=== PATIENT | male | born 1940 | race Caucasian/White ===

== ENCOUNTER 2018-12-25 13:51 | Emergency (ER) | payer OTHER, MEDICARE ==
[~2018-12-25] VITALS: Ht 175.3 cm; Wt 90.3 kg
[~2018-12-25 13:51] MED LIST: COZAAR100 MG PO; GLUCOPHAGE500 MG PO; LEVO-T50 MCG PO
[2018-12-25] MEDS ORDERED: FLOVENT HFA12 G1 INH (14:12)
[2018-12-25] MEDS ORDERED: IPRAT-ALBUT 0.5-3 ML INH (15:41)
[2018-12-25] MEDS ORDERED: PREDNISONE20 MG PO (15:41)
== END 2018-12-25 15:59 | disposition home or self-care (01) ==
LOC: ED 13:51
DX: J44.1 Chronic obstructive pulmonary disease with (acute) exacerbation (principal); I10 Essential (primary) hypertension; E03.9 Hypothyroidism, unspecified; E11.9 Type 2 diabetes mellitus without complications; Z87.891 Personal history of nicotine dependence; Z79.899 Other long term (current) drug therapy; Z79.84 Long term (current) use of oral hypoglycemic drugs
CPT/HCPCS: 94640; 99283; J7512

== ENCOUNTER 2023-05-21 14:20 | Inpatient (IN) | payer MEDICARE ==
[~2023-05-21] VITALS: Ht 175.3 cm; Wt 84.5 kg
--- NOTE | ~2023-05-21 | DS ---
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 Increasing lower abdominal pain and distention. Evaluation by Dr. Mp Guerrero showed him to have an elevated white count of greater than 15,000, a normal urinalysis and Chem profile and creatinine elevated at 1.22. A CT scan was performed showing significant abdominal distention and right lower abdominal tenderness concordant to findings of perforated ileal diverticulitis. Localized micro perforation was considered, likely had no generalized free air or pneumoperitoneum. He was considered to have an ileal diverticular abscess 1.3 cm in size with small bowel loops dilated with air-fluid levels suggesting ileus or partial small-bowel obstruction. He was admitted at this time for further evaluation and care. PERTINENT PHYSICAL EXAMINATION: GENERAL: Showed a pleasant white man, who did not look systemically toxic. VITAL SIGNS: His temperature was measured at 101. He is 84.5 kg and 5 feet 9 inches tall with a BMI of 27.5. HEENT: Mucous membranes are slightly dry. CHEST: Clear. HEART: Regular without murmur. ABDOMEN: Distended, but mildly focally tender in the right lower quadrant. LABORATORY DATA: White count was 15.8, hematocrit 40.8, platelets 181,000. Chem profile abnormal for creatinine 1.22. HOSPITAL COURSE: The patient was admitted with micro perforation of terminal ileum, diverticula (ileal diverticulitis). Broad-spectrum antibiotics were maintained. Followup abdominal and chest x-ray were performed, which showed no worsening of findings and he had clinical improvement. His white count decreased from 15.8 to 12.0 with IV antibiotics, IV fluids, and n.p.o. status. His creatinine did increase from 1.3 and ongoing hydration was maintained. He had progressive improvement. I discussed his clinical situation with his daughter, Leonel, who is a nurse in [place], [place], at [phone]. She concurred with the approach. He was noted to have decreasing white count of 7.5. He was advanced from a liquid to a full diet with ambulation in the rizo. Antibiotics were continued intravenously. A CT scan was repeated with GI and IV contrast, and although considered worsened in some ways on CT scan. His clinical situation was much improved actually. The areas of inflammatory change were well noted, including wall thickening PATIENT NAME: EKTA TEMPLE DISCHARGE SUMMARY DATE OF : 42 REPORT #: [id number] PHYSICIAN: MAI KNOX MD PCP: STEPHON HALLMAN PAC REPORT IS CONFIDENTIAL AND NOT TO BE RELEASED WITHOUT AUTHORIZATION [facility] [address], [place] [address] Draft and fat stranding involving the terminal ileum and a separate loop of more proximal jejunum, that abutted that loop of ileum. The small hypodense fluid collections adjacent to the wall of the ileum suspicious for intramural or developing abscesses up to 3 cm in size. There is no evidence for bowel obstruction. Severe ileitis and possibly ischemic ileitis was noted. Diffuse thickening of the gastric fundus beyond the GE junction was also noted and trace small right and left pleural effusions also seen. Despite those findings of note, he had progressive improvement. He was advanced to a low fiber diet and oral antibiotics, which he tolerated well. Conservative management is maintained. At time of discharge mindful that he may require resectional therapy or other intervention. DISCHARGE MEDICATIONS: His discharge medications will include Cipro 500 mg p.o. b.i.d. #14, Flagyl 250 mg p.o. t.i.d. #21, ibuprofen 600 mg p.o. q.6 hours as needed for pain #30. He will resume his usual medications of losartan 100 mg p.o. daily, Anoro Ellipta inhaler daily, metformin 500 mg daily, montelukast 10 mg p.o. daily, albuterol nebulizer or inhaler two puffs q.4 hours as needed for wheezing. FOLLOWUP PLANS: He will return to see me in 3 to 4 weeks, sooner if symptoms should worsen. DISCHARGE DIAGNOSES: 1. Acute ileitis related to ileal diverticular microperforations with small localized abscess conservatively managed. 2. Advanced reactive airways disease/chronic obstructive pulmonary disease. 3. Aoy-xhmemte-bhycdmmxa diabetes mellitus. 4. Hypertension. MD NICK Mcdonald/SHARIFL /[id number] cc: Mp Guerrero MD PATIENT NAME: EKTA TEMPLE DISCHARGE SUMMARY DATE OF : 42 REPORT #: [id number] PHYSICIAN: MAI KNOX MD PCP: STEPHON HALLMAN [facility] REPORT IS CONFIDENTIAL AND NOT TO BE RELEASED WITHOUT AUTHORIZATION [address], [place] [address] Draft Copies: MP GUERRERO MD ~ PATIENT NAME: EKTA TEMPLE DISCHARGE SUMMARY DATE OF : 42 REPORT #: [id number] PHYSICIAN: MAI KNOX MD PCP: STEPHON HALLMAN PAC REPORT IS CONFIDENTIAL AND NOT TO BE RELEASED WITHOUT AUTHORIZATION
--- NOTE | ~2023-05-21 | HP ---
[facility] [address], [place] [address] Draft ADMISSION DATE: 05/21/2023 REASON FOR ADMISSION: Acute terminal ileal inflammatory change, possible perforated ileal diverticula. 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 His two grown children live in [place] and [place]. For four days, he has had increasing pain in the lower abdomen and increasing abdominal distention. He presented to the emergency room where he was evaluated by Dr. Guerrero. His white count was noted to be elevated to greater than 15,000 (15.8 with a normal urinalysis and normal chem profile other than creatinine elevated at 1.22. A CT scan was performed as he did have significant abdominal distention and right lower quadrant tenderness. This confirmed findings most suggestive of perforated ileal diverticulitis. A localized microperforation was considered likely. He had no free or significant pneumoperitoneum generally. A possible diverticular abscess 1.3 cm in size is identified and multiple dilated small-bowel loops with air-fluid level suggesting ileus or partial small bowel obstruction. Notably, the patient has had no surgery in the past. PAST MEDICAL HISTORY: Noted for COPD. He has available to him home oxygen as I understand. He does drink beers three a week but does not drink alcohol daily. He has had right knee surgery and back surgery and is known to have hypothyroidism, and hypertension, as well as diabetes mellitus, and use of a CPAP device. CURRENT MEDICATIONS: Include ipratropium, albuterol sulfate inhaler and occasional use of fluticasone and daily use of losartan, Synthroid, and metformin. PRIMARY PROVIDER: Stephon Hallman PA-C. REVIEW OF SYSTEMS: He denies any shortness of breath at this time or chest pain. His abdominal pain is much improved since admission. He has had no blood per rectum or hematemesis. PHYSICAL EXAMINATION: VITAL SIGNS: A pleasant white man who does not look to be systemically toxic though his temperature which is measured at 101. He is 5 feet 9 inches tall, 84.5 kg, and a BMI of PATIENT NAME: EKTA TEMPLE HISTORY AND PHYSICAL DATE OF : 42 REPORT #: [id number] PHYSICIAN: MAI KNOX MD PCP: STEPHON HALLMAN PAC REPORT IS CONFIDENTIAL AND NOT TO BE RELEASED WITHOUT AUTHORIZATION [facility] [address], [place] [address] Draft 27.5. HEENT: Mucous membranes are slightly dry. Trachea is midline. CHEST: Shows no respiratory distress and generally clear. HEART: Regular. ABDOMEN: Somewhat distended. It is not focally tender except mildly in the right lower quadrant. LABORATORY STUDIES: Show white count of 15.8, hematocrit 40.8, platelets 181,000. Chem profile abnormal only for a creatinine of 1.22. I have reviewed the CT scans and reports associated with it. ASSESSMENT: The patient has an inflammatory focus in the right lower quadrant involving small bowel loops and thought likely to represent perforated ileal diverticulitis. I have recommended admission to the hospital, IV antibiotics, parenteral pain medication, and will additionally give parenteral Tylenol for fever control and pain control. I discussed with him in detail the pathophysiology of this problem for which operative intervention is sometimes necessary. He has not had nausea or vomiting, and although he does have some distended bowel loops, we have avoided for the moment, placement of nasogastric tube unless he should vomit or have worsening of his distention. Given his underlying possible significant COPD from the past, nasogastric tube may be more problematic than beneficial at this point. Since his process is in the very distal small bowel, there is some room for flexibility in this situation. If he should develop nausea, vomiting however, nasogastric tube would be promptly placed. MD NICK Mcdonald/ANNA /[id number] cc: Stephon Hallman PA-C Mp Guerrero MD PATIENT NAME: EKTA TEMPLE HISTORY AND PHYSICAL DATE OF : 42 REPORT #: [id number] PHYSICIAN: MAI KNOX MD PCP: STEPHON HALLMAN PAC REPORT IS CONFIDENTIAL AND NOT TO BE RELEASED WITHOUT AUTHORIZATION [address] [place], [place] [address] Draft Copies: MP GUERRERO MD ~ PATIENT NAME: EKTA TEMPLE HISTORY AND PHYSICAL DATE OF : 42 REPORT #: [id number] PHYSICIAN: MAI KNOX MD PCP: STEPHON HALLMAN PAC REPORT IS CONFIDENTIAL AND NOT TO BE RELEASED WITHOUT AUTHORIZATION
--- OUTSIDE RECORDS SUMMARY | ~2023-05-21 | XMS | Continuity of Care Document ---
Demographics + + + | Address | [address] | | | [place] [address] | + + + | Preferred Language | Unknown | + + + | Marital Status | | + + + | Restorationism Affiliation | Unknown | + + + | Race | White | + + + | Ethnic Group | Unknown | + + + Author + + + | Author | [facility] | + + + | Organization | [facility] | + + + | Address | [address] | | | [place] [address] | + + + | Phone | | + + + Care Team Providers + + + + | Care Plug And Mold Finisher Name | Role | Phone | + + + + Unavailable | Unavailable | + + + + Allergies No information. Encounters No information. Functional Status No information. Immunizations No information. Medications No information. 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 Results/Labs No information. Social History No information. Vital Signs No information."
--- OUTSIDE RECORDS SUMMARY | ~2023-05-21 | XMS | Continuity of Care Document ---
Demographics + + + | Address | [address] | | | [place] [address] | + + + | Preferred Language | Unknown | + + + | Marital Status | | + + + | Cheondoism Affiliation | Unknown | + + + | Race | White | + + + | Ethnic Group | Unknown | + + + Author + + + | Author | [facility] | + + + | Organization | [facility] | + + + | Address | [address] | | | [place] [address] | + + + | Phone | | + + + Care Team Providers + + + + | Care Music Therapist [employer] Name | Role | Phone | + [...]
--- OUTSIDE RECORDS SUMMARY | ~2023-05-21 | XMS | Continuity of Care Document ---
Demographics + + + | Address | [address] | | | [place] [address] | + + + | Preferred Language | Unknown | + + + | Marital Status | | + + + | Congregational Affiliation | Unknown | + + + | Race | White | + + + | Ethnic Group | Unknown | + + + Author + + + | Author | [facility] | + + + | Organization | [facility] | + + + | Address | [address] | | | [place] [address] | + + + | Phone | | + + + Care Team Providers + + + + | Care Drying Machine Receiver Name | Role | Phone | + [...]
[~2023-05-21 14:20] MED LIST changes: +FLOVENT HFA12 G1 INH; +IPRAT-ALBUT 0.5-3 ML INH; +PREDNISONE20 MG PO
[2023-05-21 18:20] VITALS: BP 133/42
--- NOTE | 2023-05-21 19:21 | NUR ---
RECEIVED REPORT FROM FRANCO PT IN BED, O2 IN PLACE, FINISHED PRN TYLENOL INFUSION, CURRENTLY ER BOLUS OF NS INFUSING. NO NEEDS AT THIS TIME.
[2023-05-21 20:12] VITALS: BP 108/53
--- NOTE | 2023-05-21 21:43 | NUR ---
ABX INFUSING, ASKED PT IF HE NEEDED TO USE URINAL, DENIED. STATES ABDOMIN IS MUCH BETTER THAN WHEN HE CAME IN. SAID MUCH WORSE BEFORE HE CAME IN. DENIES NAUSEA, EDUCATED TO CALL IF PAIN INCREASES, NAUSEA, OR OTHER NEEDS. AWARE OF HOW TO USE CALL LIGHT. BOLUS CONTINUES.
--- NOTE | 2023-05-21 22:04 | NUR ---
CALL LIGHT ANSWERED. SBA AT SIDE OF BED FOR pt TO VOID IN URINAL, 400 ML CLEAR YELLOW URINE. BACK IN BED. SCDS ON. IVF BOLUS AND ANTIBIOTIC INFUSING WNL ORDERED. CALL LIGHT IN REACH.
--- NOTE | 2023-05-21 22:18 | NUR ---
IV PUMP ALARMING, IVF BOLUS COMPLETE. pt RESTING IN BED WITH EYES CLOSED, AWAKENS TO RN ENTERING ROOM. CLOSES EYES AGAIN. BREATHING UNLABORED. NO DISTRESS NOTED. IV ANTIBIOTIC INFUSING ORDERED WNL.
--- NOTE | 2023-05-21 22:50 | NUR ---
RT IN ROOM, CPOX PLACED PT USES CPAP AT HOME, ON 2 L NOT CHRONIC, AT 94-95%
--- NOTE | 2023-05-22 00:19 | NUR ---
RN CALLED TO ROOM FOR ASSIST TO GET UP AND USE URINAL, PT VOIDED 300ML YELLOW URINE, CPOX ALARM FOR SATS 81-82% AFTER RETURN TO BED, OXYGEN FOUND OUT OF NARES, REPLACED, OX SAT RISING TO 90%, PT WITHOUT OTHER REQUESTS.
--- NOTE | 2023-05-22 00:50 | NUR ---
NOTICED PT AWAKE, ASSESSED PAIN, PT STATES THAT HE ISN'T REALLY IN PAIN, BUT MIGHT BE UNCOMFORTABLE, "MAYBE THATS WHY I AM AWAKE." DISCUSSED PAIN MANAGMENT, HE AGREED TO TAKE TORADOL FOR 3/10 DISCOMFORT. HAS BEEN VOIDING WITHOUT DIFFICULTY THIS SHIFT. ABD REMAINS FIRM, DISTENTION IS UNCHANGE FROM PREVIOUS ASSESSMENT. DENIES NAUSEA; CALL LIGHT WITHIN REACH. NO OTHER NEEDS.
[2023-05-22 02:45] VITALS: BP 116/57
--- NOTE | 2023-05-22 02:50 | NUR ---
pt SLEEPING, AWAKENS TO VOICE. VSS. pt DENIES PAIN. ABDOMINAL ASSESSMENT COMPLETE, ABDOMEN DISTENDED, "SORE" THROUGHOUT WITH PALPATION, pt DENIES PAIN AT REST. NO NAUSEA. 2L OXYGEN BY NC IN PLACE FOR SLEEP. SPO2 WNL. pt DENIES TOILETING NEEDS. CALL LIGHT IN REACH.
--- NOTE | 2023-05-22 04:41 | NUR ---
IV PUMP ALARMING, DISTAL OCCLUSION. pt RESTING IN BED WITH EYES CLOSED, BREATHING UNLABORED. DOES NOT AWAKEN TO RN ENTERING ROOM. CPOX ON, SPO2 WNL.
[2023-05-22 06:26] VITALS: BP 121/58
--- NOTE | 2023-05-22 06:31 | NUR ---
pt SLEEPING, AWAKENS TO VOICE. VSS. pt DENIES PAIN. IV SITE FLUSHED WNL, IV ANTIBIOTIC INFUSING ORDERED. pt DENIES TOILETING NEEDS. CALL LIGHT IN REACH.
--- NOTE | 2023-05-22 07:28 | NUR ---
RECEIVED REPORT FROM NOC NURSE. PT IS A/O, RESPIRATIONS EVEN AND REGULAR. IV FLUIDS RUNNING. DENIES NEEDS ATT.
[2023-05-22 09:55] VITALS: BP 146/81
--- NOTE | 2023-05-22 10:00 | NUR ---
Spoke with Jose. He states he lives with his in a a house with 1 step. They have ramp they built as they wanted to plan ahead. Both have had surgeries and they have a walker and a cane. They are both active and drive, clean, cook, and shop. He states they are raising a 2 and 5 year old for family. They do not use any outside resources. He feels they do not have financial issues. He plans on dc to home when he is medically cleared.
[2023-05-22] MEDS ORDERED: ANORO ELLIPTA1 EACH INH (10:18)
[2023-05-22] MEDS ORDERED: METFORMIN HCL500 M1 PO (10:19)
[2023-05-22] MEDS ORDERED: MONTELUKAST SOD10 MG PO (10:20)
[2023-05-22] MEDS ORDERED: VENTOLIN HFA18 GM INH (10:21)
[2023-05-22] MEDS ORDERED: ALBUTEROL2.5 MG/3 M INH (10:22)
--- NOTE | 2023-05-22 10:49 | NUR ---
MED REC COMPLETE
--- NOTE | 2023-05-22 11:36 | NUR ---
PT IN CHAIR. STATES FEELING BETTER. CONSENTED TO PRAYER. PRAYED FOR ONGOING HEALING.
--- NOTE | 2023-05-22 11:43 | NUR ---
PT AMBULATED IN HALLWAY X2 LAPS. TOLERATED WELL. HAS HAD JELLO X 1 AND A CUP OF BROTH. DENIES N/V, HAS HAD SOME RLQ PAIN AFTER THE BROTH. DENIES FEELING INCREASED BLOATING. SITTING AT EOB WITH AT BEDSIDE. CALL LIGHT WITHIN REACH. IV FLUIDS RUNNING.
--- NOTE | 2023-05-22 12:30 | NUR ---
ASSISTED PT WITH MEAL TRAY. EDUCATED ON GOING VERY SLOW WITH INTAKE. PT IS A/O, RESPIRATIONS EVEN AND REGULAR. CURRENTLY ON 1L NC WITH CPOX IN PLACE. IV FLUIDS RUNNING. AT BEDSIDE. CALL LIGHT WITHIN REACH.
[2023-05-22 13:38] VITALS: BP 127/65
--- NOTE | 2023-05-22 13:42 | NUR ---
PATIENT SITTING UP IN BED WATCHING TV AT THIS TIME. VITALS AND I&O'S CHARTED. CALL LIGHT IN REACH. NO FURTHER NEEDS AT THIS TIME.
--- NOTE | 2023-05-22 15:56 | NUR ---
ASSISTED PT TO AMBULATE IN HALLWAY X 2 LAPS. AMBULATED WELL, STATES HE STILL FEELS DISTENDED FROM LUNCH BUT IS PASSING GAS. BECOMES SOB WITH EXERTION. PT BACK TO BED. IV FLUIDS AND ABX RUNNING. CALL LIGHT WITHIN REACH.
--- NOTE | 2023-05-22 16:01 | EKG ---
[facility] [address] [place] [address] Signed Sinus rhythm with premature atrial complexes with aberrant conduction Left axis deviation Left bundle branch block Abnormal ECG No previous ECGs available Confirmed by NBA JARA MD ([id number]) on 05/22/2023 4:00:56 PM Electronically Signed By: NBA JARA 05/22/23 1601 PATIENT NAME: EKTA TEMPLE Electrocardiogram DATE OF : 42 PHYSICIAN: NBA JARA REPORT #: [id number] REPORT IS CONFIDENTIAL AND NOT TO BE RELEASED WITHOUT AUTHORIZATION
[2023-05-22 18:26] VITALS: BP 150/51
--- NOTE | 2023-05-22 19:43 | NUR ---
REPORT RECEIVED FROM CRISTINE GAMEZ. pt RESTING IN BED AWAKE, 1L OXYGEN BY NC IN PLACE. SPO2 90%. pt DENIES PAIN. CALL LIGHT IN REACH.
--- NOTE | 2023-05-22 19:45 | NUR ---
CALL LIGHT ANSWERED. SBA. PATIENT USED THE BATHROOM AND VOIDED yellow urine. PATIENT IS BACK IN BED. SCD'S AND CPOX ARE BACK ON. DENIED FURTHER CARE OR NEEDS AT THIS TIME.
[2023-05-22 22:00] VITALS: BP 125/54
--- NOTE | 2023-05-22 22:27 | NUR ---
IN pt ROOM FOR MEDICATION ADMINISTRATION. IV SITE FLUSHED WNL. IV ANTIBIOTIC INFUSING ORDERED. ASSESSMENT COMPLETE. pt DENIES ANY PAIN, ABDOMEN DISTENDED, SOFT, NON-TENDER WITH PALPATION. pt PROVIDED WITH JELLO, DENIES NAUSEA. MINIMAL INTAKE THIS EVENING PER ORDERS. SBA TO VOID AT SIDE OF BED. pt APPLYING CPAP AT THIS TIME. CPOX ON. CALL LIGHT IN REACH.
--- NOTE | 2023-05-23 00:23 | NUR ---
pt RESTING IN BED WITH EYES CLOSED, HOME CPAP ON. SPO2 96%. NO DISTRESS NOTED.
--- NOTE | 2023-05-23 01:57 | NUR ---
CALL LIGHT ANSWERED. pt STATES I THINK I HAD AN ACCIDENT. IV PULLED ACCIDENTALLY, LEAKING. NEW IV STARTED RIGHT FOREARM, pt TOLERATED WELL. SBA AT SIDE OF BED FOR VOID IN URINAL AND BACK IN BED. pt REQUESTING BREAK FROM HOME CPAP BECAUSE THERE ARE TOO MANY CORDS AND WIRES. 1L OXYGEN BY NC IN PLACE, CPOX ON. SCDS IN PLACE. IV ANTIBIOTIC AND IVF INFUSING WNL. CALL LIGHT IN REACH.
--- NOTE | 2023-05-23 04:04 | NUR ---
CALL LIGHT ANSWERED. SBA TO SIDE OF BED FOR VOID IN URINAL AND BACK TO BED. IVF INFUSING WNL ORDERED. SCDS ON. CALL LIGHT IN REACH.
[2023-05-23 05:05] VITALS: BP 143/59
--- NOTE | 2023-05-23 05:09 | NUR ---
vss and i&o's collected and charted. iv site wnl, fluids infusing as directed. no additional needs or concerns verbalized when asked. call light in reach.
--- NOTE | 2023-05-23 06:13 | NUR ---
CALL LIGHT ANSWERED. SBA TO SIDE OF BED FOR VOID. pt BACK IN BED. ASSESSMENT COMPLETE. pt DENIES PAIN. REPORTS FLATUS. ABD DISTENTION UNCHANGED, ABDOMEN SOFT, NON-TENDER WITH PALPATION. ACTIVE BOWEL TONES. CALL LIGHT IN REACH.
--- NOTE | 2023-05-23 07:47 | NUR ---
Got report from postal superintendent nurse. Patient currently laying in bed watching tv. Oxygen on, pulse ox on, scds on. Patient has call light within reach. Denies any needs at this time.
--- NOTE | 2023-05-23 09:15 | NUR ---
Into do morning assessment and give medications. Patient holding oxygen. Took patient off of NC and still holding at 96. Will continue to monitor, patient has pulse ox on. Denies any other cares at this time. Denies pain or nausea. Patient has SCDs on.
[2023-05-23 09:19] VITALS: BP 145/76
--- NOTE | 2023-05-23 09:39 | NUR ---
in with patient currently.
--- NOTE | 2023-05-23 11:45 | NUR ---
Pt resting in bed. Spoke with his . She denies needs and plans on pt dc to home when he is medically cleared. She also brings up they are raising a 2 and 5 yo. She calls them her blessings.
--- NOTE | 2023-05-23 11:56 | NUR ---
ATTEMPTED TO VISIT. WAS ON PHONE WITH DAUGHTER AND NURSING STAFF ENTERED TO TAKE PT FOR SHOWER. I INDICATED I WOUDL RETURN LATER IN THE DAY.
--- NOTE | 2023-05-23 13:25 | NUR ---
PT WENT FOR WALK AROUND THE MED SURG FLOOR ONCE. TOLERATED IT WELL. CURRENTLY BACK IN BED WATCHING TV. CALL LIGHT WITHIN REACH
--- NOTE | 2023-05-23 13:27 | NUR ---
PT IN BED. EXPRESSED GRATITUDE FOR SHOWER AND ANTICIPATION FOR WALK. CONSENTED TO PRAYER. PRAYED FOR ONGOING HEALING.
[2023-05-23 13:59] VITALS: BP 151/78
--- NOTE | 2023-05-23 15:24 | NUR ---
PATIENT TOOK A SHOWER THIS MORNING. HELPED.
--- NOTE | 2023-05-23 15:30 | NUR ---
PATIENT HAD SHOWER AND IS OVERALL FEELING REALLY GOOD. PATIENT IS ON FULL LIQUIDS NOW BUT UNABLE TO DO DAIRY. ADDED NOTE TO DIET CONSULT. PATIENT DENIES PAIN, NAUSEA. TOLERATING RA WELL HOLDING ABOVE 95%. CALL LIGHT WITHIN REACH.
--- NOTE | 2023-05-23 16:54 | NUR ---
INTO CHECK ON PATIENT AND SEE IF HE WANTS TO WALK. PATIENT CURRENTLY HAS AND GREAT GRANDSON IN ROOM VISITING. PATIENT WILL CALL ONCE THEY LEAVE TO WALK. DENIES ANY CARES AT THIS TIME.
--- NOTE | 2023-05-23 17:40 | NUR ---
PATIENT UP TO USE THE RESTROOM. NEW BAG OF LR STARTED. FAMILY AT BEDSIDE. DENIES NEEDS.
[2023-05-23 18:42] VITALS: BP 159/65
--- NOTE | 2023-05-23 19:20 | NUR ---
PT assesed, pt has no complaints, assesed. Educated on CPAP and NC for overnight.
--- NOTE | 2023-05-23 20:23 | NUR ---
call received from dr blandon, telephone order read back for ct scan of abd/pelvis for tomorrow morning with gi and iv contrast. primary rn amira made aware.
[2023-05-23 21:25] VITALS: BP 161/59
[2023-05-24 04:45] VITALS: BP 142/65
--- NOTE | 2023-05-24 07:00 | NUR ---
DISCUSSED CONTRAST ORDERS WITH MARITO IN IMAGING. PER MARITO, ORDERED GASTROGRAFIN 66-10 SOLUTION 15ML BOTTLE IS CORRECT. GIVE X1 DOSE AT 0800, A SECOND DOSE AT 0900 AND IMAGING WILL COME TO BLASTING HELPER pt AT 1000. MARITO CHANG MD WANTS BOTH ORAL AND IV CONTRAST. DAYSYAHIRFT CRISTINE TAVERAS AND ALESSANDRO VERIFIER OPERATORCRISTINE BAUER AWARE AND UPDATED.
--- NOTE | 2023-05-24 07:30 | NUR ---
Pt did well overnight. Pt had no pain, voided plenty. Stomach is soft and no nausea overnight.
--- NOTE | 2023-05-24 08:00 | NUR ---
THIS PRESS BUCKER HAS TAKEN OVER CARES FROM [employer] PRESS BUCKER. PT USED URINAL WHILE STANDING ON THE SIDE OF THE BED. NO OTHER NEEDS AT THIS TIME. CALL LIGHT WITHIN REACH.
--- NOTE | 2023-05-24 08:59 | NUR ---
PATIENT SITTING UP WATCHING TV, NO ACUTE DISTRESS. PATIENT REPORTS PASSING FLATUS, ACTIVE BOWEL TONES X4 QUADRANTS. PATIENT DENIES NAUSEA AND PAIN AT THIS TIME. IV SITE PATENT. LAST DOSE OF GASTROGRAFIN ADMIN AT THIS TIME PER SCHEDULE. PATIENT UPDATED WITH PLAN OF CARE. NO CURRENT NEEDS. PERSONAL SUPPLIES AND CALL LIGHT WITHIN REACH.
[2023-05-24 09:27] VITALS: BP 167/70
--- NOTE | 2023-05-24 09:30 | NUR ---
Spoke with Jose. is in room. He states he is feeling better and is up walking. Pt states he is passing gas and is now on Full liq diet. Denies needs.
--- NOTE | 2023-05-24 11:00 | NUR ---
Update from Dr. Jose. Pt imaging has worsened and pt may go to surgery. No plan for dc today.
--- NOTE | 2023-05-24 11:22 | NUR ---
PATIENT UP WALKING AROUND IN ROOM, NO DISTRESS. AT BEDSIDE VISITING WITH PATIENT AT THIS TIME. PATIENT DENIES NAUSEA. NOTABLE ABDOMINAL DISTENSION. IV SITE REMAINS PATENT, FLUIDS INFUSING PER PROVIDER ORDER. NO CURRENT NEEDS, PERSONAL SUPPLIES AND CALL LIGHT WITHIN REACH.
--- NOTE | 2023-05-24 13:30 | NUR ---
CONNECTED BRIEFLY WITH PT WAS BEING TAKEN TO IMAGING. APPEARED TO BE IN GOOD SPIRITS. PRAYED SILENT PRAYER FOR ONGOING HEALING.
[2023-05-24 14:08] VITALS: BP 127/71
[2023-05-24 17:16] VITALS: BP 143/81
[2023-05-24 17:35] VITALS: BP 170/66
[2023-05-24 20:32] VITALS: BP 134/61
[2023-05-25 05:49] VITALS: BP 146/61
--- NOTE | 2023-05-25 09:29 | NUR ---
SPOKE TO PATIENT ABOUT HIS DISCHARGE PLAN.WHEN THE PATIENT IS MEDICALLY STABLE THE PATIENT WILL GO HOME WITH HIS .PATIENT HAS SUPPORTIVE FAMILY AND FRIENDS.
[2023-05-25 09:30] VITALS: BP 136/60
--- NOTE | 2023-05-25 09:33 | NUR ---
PATIENT IN BED WATCHING TV. VITALS AND I/O'S COMPLETED. PT HAS NO OTHER REQUESTS AT THIS TIME, CALL LIGHT WITHIN REACH.
--- NOTE | 2023-05-25 11:52 | NUR ---
PT SITTING UP IN BED. OVERALL IN GOOD SPIRITS. HOPEFUL OF DISCHARGE SOON. TALKED OF GRANDCHILDREN AND . CONSENTED TO PRAYER. PRAYED FOR ONGOING HEALING AND PATIENCE.
[2023-05-25 14:05] VITALS: BP 135/57
--- NOTE | 2023-05-25 14:08 | NUR ---
PATIENT SITTING ON BED AFTER MEAL. VITALS AND I/O'S COMPLETED. FAMILY IN ROOM. PT HAS NO OTHER REQUESTS AT THIS TIME. CALL LIGHT WITHIN REACH.
[2023-05-25] MEDS ORDERED: CIPROFLOXACIN500 MG PO (15:10)
[2023-05-25] MEDS ORDERED: METRONIDAZOLE250 MG PO (15:10)
[2023-05-25] MEDS ORDERED: IBUPROFEN600 MG PO (15:11)
== END 2023-05-25 18:46 | disposition home or self-care (01) | DRG 392 ==
LOC: ED 14:20 → MS 14:21
PROVIDERS: ADMIT Surgery; ATTEND Surgery
DX: K57.00 Diverticulitis of small intestine with perforation and abscess without bleeding (principal); K52.9 Noninfective gastroenteritis and colitis, unspecified; I10 Essential (primary) hypertension; E11.9 Type 2 diabetes mellitus without complications; E03.9 Hypothyroidism, unspecified; F10.90 Alcohol use, unspecified, uncomplicated; E86.0 Dehydration; J44.9 Chronic obstructive pulmonary disease, unspecified; Z87.891 Personal history of nicotine dependence; Z98.890 Other specified postprocedural states; Z79.899 Other long term (current) drug therapy; Z99.89 Dependence on other enabling machines and devices; Z79.890 Hormone replacement therapy; Z79.4 Long term (current) use of insulin; Z79.51 Long term (current) use of inhaled steroids; Z79.52 Long term (current) use of systemic steroids; Z79.84 Long term (current) use of oral hypoglycemic drugs
CPT/HCPCS: 36415; 71045; 74018; 74177; 80048; 80053; 81003; 83690; 85025; 93005; 93010; 94640; 94760; 94762; J0131; J1170; J1644; J1885; J2405; J2543; J7030; J7121; Q9967

== ENCOUNTER 2023-10-08 13:11 | Emergency (ER) | payer MEDICARE ==
[~2023-10-08] VITALS: Ht 175.3 cm; Wt 83.9 kg
[~2023-10-08 13:11] MED LIST changes: +ALBUTEROL2.5 MG/3 M INH; +AMOX TR-K CLV1 EAC1 PO; +ANORO ELLIPTA1 EACH INH; +AZITHROMYCIN250 MG PO; +CIPROFLOXACIN500 MG PO; +ELIQUIS5 MG PO; +IBUPROFEN600 MG PO; +K-TAB ER20 MEQ PO; +LEVOTHYROXINE50 MC1; +LEVOTHYROXINE50 MCG PO; +LOSARTAN POTAS100 MG PO; +METFORMIN HCL500 M1 PO; +METOPROLOL SUCC25 MG PO; +METRONIDAZOLE250 MG PO; +MONTELUKAST SOD10 MG PO; +VENTOLIN HFA18 GM INH
[2023-10-08 13:39] LABS: BILIRUBIN, URINE NEGATIVE (negative); BLOOD/HGB, URINE NEGATIVE (Negative); KETONE, URINE NEGATIVE (Negative); LEUK ESTERASE, URINE NEGATIVE (negative); NITRITE, URINE NEGATIVE (negative)
[2023-10-08 14:01] LABS: BASOPHILS 0.5 % (0-2); EOSINOPHILS 1.7 % (0-6); HEMATOCRIT 40.6 % (35.0-50.0); HEMOGLOBIN 13.6 g/dL (12.0-18.0); LYMPHOCYTES 19.4 % (24-44); MCH 30.9 (27-36); MCHC 33.6 g/dl (30-36); MCV 91.9 fl (81-99); MONOCYTES 9.8 % (0-12); NEUTROPHILS 68.6 % (39-80); PLATELET COUNT 211 K/uL (140-440); RBC 4.41 M/ul (4.3-5.7); RDW 13.8 (10.5-15.0)
[2023-10-08 14:15] LABS: ALBUMIN/GLOBULIN RATIO 1.03 (1.1-2.4); ANION GAP 13.1 (7-21); BILIRUBIN, TOTAL 0.6 ng/dL (0.2-1.0); BUN/CREATININE RATIO 15.53 (6.0-28.6); CALCIUM 9.3 mg/dL (8.5-10.1); CREATININE, SERUM 1.03 mg/dL (0.70-1.30); POTASSIUM 4.1 mmol/L (3.5-5.1); PROTEIN, TOTAL 7.9 g/dL (6.4-8.2)
[2023-10-08] MEDS ORDERED: AMOX TR-K CLV1 EAC1 PO (17:41)
[2023-10-08] MEDS ORDERED: METRONIDAZOLE500 MG PO (17:41)
[2023-10-08 17:49] VITALS: BP 143/67
== END 2023-10-08 17:54 | disposition home or self-care (01) ==
LOC: ED 13:11
PROVIDERS: Emergency Medicine
DX: K57.12 Diverticulitis of small intestine without perforation or abscess without bleeding (principal); I10 Essential (primary) hypertension; E11.9 Type 2 diabetes mellitus without complications; E03.9 Hypothyroidism, unspecified; J44.9 Chronic obstructive pulmonary disease, unspecified; Z87.891 Personal history of nicotine dependence; Z79.84 Long term (current) use of oral hypoglycemic drugs; Z79.890 Hormone replacement therapy; Z79.899 Other long term (current) drug therapy
CPT/HCPCS: 36415; 74177; 80053; 81003; 83690; 85025; 96361; 96375; 99284-25; J0696; J7040; Q9967

== ENCOUNTER 2024-03-24 15:52 | Observation (INO) | payer OTHER, MEDICARE ==
[~2024-03-24] VITALS: Ht 175.3 cm; Wt 86.0 kg
[~2024-03-24 15:52] MED LIST changes: -K-TAB ER20 MEQ PO; +KLOR-CON 1010 MEQ PO; +METRONIDAZOLE500 MG PO
[2024-03-24] MEDS ORDERED: PREDNISONE20 MG PO (16:27)
[2024-03-24] MEDS ORDERED: SODIUM CHLORIDE 0.9% 500 ML IV PRN (16:30)
[2024-03-24 16:33] LABS: BASOPHILS 0.4 % (0-2); EOSINOPHILS 1.7 % (0-6); HEMATOCRIT 28.2 % (35.0-50.0); HEMOGLOBIN 9.5 g/dL (12.0-18.0); LYMPHOCYTES 18.7 % (24-44); MCH 31.2 (27-36); MCHC 33.8 g/dl (30-36); MCV 92.4 fl (81-99); MONOCYTES 6.2 % (0-12); PLATELET COUNT 279 K/uL (140-440); RBC 3.05 M/ul (4.3-5.7); RDW 13.3 (10.5-15.0)
[2024-03-24 16:46] LABS: INR 1.05 (0.80-1.30); PROTIME 13.4 Sec (11.2-14.2)
[2024-03-24 16:47] LABS: ALBUMIN 3.4 g/dL (3.4-5.0); ALBUMIN/GLOBULIN RATIO 1.26 (1.1-2.4); ANION GAP 12.9 (7-21); BILIRUBIN, TOTAL 0.2 ng/dL (0.2-1.0); BUN/CREATININE RATIO 41.4 (6.0-28.6); CALCIUM 9.1 mg/dL (8.5-10.1); CREATININE, SERUM 1.28 mg/dL (0.70-1.30); POTASSIUM 3.9 mmol/L (3.5-5.1); PROTEIN, TOTAL 6.1 g/dL (6.4-8.2)
[2024-03-24] MEDS ORDERED: PANTOPRAZOLE SODIUM 40 MG/10 ML VIAL IV ONE (17:15)
[2024-03-24 17:16] LABS: ABO A; ANTIBODY SCREEN NEGATIVE; RH POSITIVE
[2024-03-24 17:40] LABS: BASOPHILS 0.5 % (0-2); EOSINOPHILS 1.9 % (0-6); HEMATOCRIT 27.1 % (35.0-50.0); MCH 30.7 (27-36); MCV 92.9 fl (81-99); MONOCYTES 5.7 % (0-12); NEUTROPHILS 74.9 % (39-80); PLATELET COUNT 254 K/uL (140-440); RBC 2.92 M/ul (4.3-5.7); RDW 13.1 (10.5-15.0)
[2024-03-24 17:54] LABS: IS CROSSMATCH COMPATIBLE
[2024-03-24 17:59] LABS: ABO A; RH POSITIVE
[2024-03-24] MEDS ORDERED: DEXTROSE 50% 50 ML SYR IV PRN ×2 (18:00)
[2024-03-24] MEDS ORDERED: IBLOOD GLUCOSE TEST STRIP 1 EA TEST XX PRN (18:00)
[2024-03-24] MEDS ORDERED: GLUCAGON,HUMAN RECOMBINANT 1 MG/ML VIAL SUB-Q PRN (18:00)
[2024-03-24] MEDS ORDERED: DEXTROSE 5% 1,000 ML IV PRN (18:00)
[2024-03-24] MEDS ORDERED: ondansetron HCL 4 MG/2 ML VIAL IV PRN (18:00)
[2024-03-24 18:28] VITALS: BP 120/62
--- NOTE | 2024-03-24 18:50 | NUR ---
PT TO ROOM VIA GURNEY IS ABLE TO MOVE SELF TO THE BED. ALERT AND COOPERATIVE PRESENT IN THE ROOM. PT IS NPO AT THIS TIME. ORIENTED TO BED CONTROLS AND ROUTINE. PT AGREES TO USE CALL LIGHT FOR NEED TO GET UP OUT OF BED.
--- NOTE | 2024-03-24 19:32 | NUR ---
REPORT RECEIVED FROM DAY SHIFT RN. PT LYING IN BED ALERT AND ORIENTED. PT FAMILY ASKING FOR WATER. DISCUSSED NPO STATUS. PT EXPRESSES UNDERSTANDING. ORAL CARE SUPPLIES PROVIDED. NO FURTHER NEEDS. CALL LIGHT IN REACH. WHITE BOARD UPDATED.
[2024-03-24 20:10] VITALS: BP 112/90
--- NOTE | 2024-03-24 20:29 | NUR ---
EVENING ASSESSMENT COMPLETE. IVF INFUSING PER ORDER. PT DENIES PAIN OR NAUSEA. DENIES LIGHTHEADEDNESS. BOWEL TONES ACTIVE. SCD'S ADJUSTED PER PT REQUEST. FAMILY AT BEDSIDE. PT DENIES QUESTIONS OR CONCERNS. CALL LIGHT IN REACH.
[2024-03-24] MEDS ORDERED: DEXTROSE 5% IV SCH (20:30)
[2024-03-24] MEDS ORDERED: LACTATED RINGERS IV SCH (20:30)
[2024-03-24] MEDS ORDERED: DEXTROSE 5% - LACTATED RINGERS 1,000 ML IV SCH (20:30)
--- NOTE | 2024-03-24 20:45 | NUR ---
PATIENT CALLED TO USE THE BATHROOM. SBA. PATIENT VOIDED 600ML. PATIENT IS BACK IN BED. SCD'S BACK ON. FAMILY IN THE ROOM. NO OTHER NEEDS AT THIS TIME.
[2024-03-24] MEDS ORDERED: IBLOOD GLUCOSE TEST STRIP 1 EA TEST VI SCH (21:00)
[2024-03-24] MEDS ORDERED: SUCRALFATE 1 GM TAB PO SCH (21:00)
[2024-03-24] MEDS ORDERED: INSULIN LISPRO 100 UNIT/ML ML SUB-Q SCH (21:00)
[2024-03-24 22:13] VITALS: BP 112/90
[2024-03-24 23:29] LABS: HEMOGLOBIN 8.5 g/dL (12.0-18.0); MCV 91.9 fl (81-99)
--- NOTE | 2024-03-24 23:33 | NUR ---
LAB IN ROOM FOR BLOOD DRAW. PT UP TO BR WITH MINIMAL SBA TO VOID 550 ML CLEAR YELLOW URINE. BACK TO BED, AMILCAR WELL. GAIT STEADY. PT DENIES FEELING LIGHTHEADED OR DIZZY WITH AMB. WARM BLANKET PROVIDED. NO FURTHER NEEDS.
[2024-03-24 23:35] LABS: BASOPHILS 0.5 % (0-2); EOSINOPHILS 1.6 % (0-6); HEMATOCRIT 25.6 % (35.0-50.0); LYMPHOCYTES 19.8 % (24-44); MCH 30.3 (27-36); MONOCYTES 4.9 % (0-12); NEUTROPHILS 73.2 % (39-80); PLATELET COUNT 222 K/uL (140-440); RBC 2.79 M/ul (4.3-5.7); RDW 13.3 (10.5-15.0)
[2024-03-25] VITALS (9 sets, daily range): BP systolic 96–141; BP diastolic 50–80
[2024-03-25] MEDS ORDERED: INSULIN LISPRO 100 UNIT/ML ML SUB-Q SCH ×2 (02:00→17:00)
--- NOTE | 2024-03-25 02:16 | NUR ---
CALL LIGHT ANSWERED. PT UP TO BR TO VOID. BACK TO BED, AMILCAR WELL. DENIES FEELING DIZZY OR LIGHTHEADED WITH AMBULATION. DENIES PAIN OR NAUSEA. VS AND BLOOD SUGAR OBTAINED, WNL. PT REMAINS NPO. IVF INFUSING PER ORDER. ORAL CARE SUPPLIES ON BEDSIDE. SCD'S IN PLACE. NO FURTHER NEEDS.
--- NOTE | 2024-03-25 05:01 | NUR ---
PT UP TO BR TO VOID WITH MINIMAL SBA. GAIT STEADY. BACK TO BED, AMILCAR WELL. DENIES PAIN OR NAUSEA. DENIES LIGHTHEADEDNESS OR DIZZINESS. VS AND I&O OBTAINED. NO FURTHER NEEDS.
[2024-03-25 05:22] LABS: BASOPHILS 0.8 % (0-2); EOSINOPHILS 1.8 % (0-6); HEMOGLOBIN 8.6 g/dL (12.0-18.0); LYMPHOCYTES 20.1 % (24-44); MCH 30.6 (27-36); MCHC 33.1 g/dl (30-36); MCV 92.4 fl (81-99); MONOCYTES 4.8 % (0-12); NEUTROPHILS 72.5 % (39-80); PLATELET COUNT 224 K/uL (140-440); RBC 2.82 M/ul (4.3-5.7); RDW 13.2 (10.5-15.0)
[2024-03-25 05:34] LABS: ALBUMIN 2.9 g/dL (3.4-5.0); ALBUMIN/GLOBULIN RATIO 1.16 (1.1-2.4); ANION GAP 11.8 (7-21); BILIRUBIN, TOTAL 0.3 ng/dL (0.2-1.0); BUN/CREATININE RATIO 31.06 (6.0-28.6); CALCIUM 8.3 mg/dL (8.5-10.1); CREATININE, SERUM 1.03 mg/dL (0.70-1.30); PHOSPHORUS, INORGANIC 3.6 mg/dL (2.5-4.9); POTASSIUM 3.8 mmol/L (3.5-5.1); PROTEIN, TOTAL 5.4 g/dL (6.4-8.2)
--- NOTE | 2024-03-25 06:31 | NUR ---
SCHEDULED PO MEDS ADMIN WITH A SIP OF WATER. PT DENIES NEEDS AT THIS TIME. CALL LIGHT IN REACH.
--- NOTE | 2024-03-25 07:36 | NUR ---
UR CLINCIAL REVIEW: [facility] OBS 03/24/24 @ 1757 ORDER MATCHES REG NO AUTH REQUIRED FOR OBS STAY DISCHARGE POST EGD 03/26/28
--- NOTE | 2024-03-25 07:40 | NUR ---
Patient in bed resting, eyes closed, respirations even and non labored. Patient has no notable distress. Personal supplies and call light within reach.
--- NOTE | 2024-03-25 07:51 | NUR ---
Board has been updated and call light has been placed within reach. No request from patient at this time
--- NOTE | 2024-03-25 07:54 | CONS ---
[facility] [address], [place] [address] Signed DATE OF CONSULTATION: 03/24/2024 TIME: 8:30 p.m. REQUESTING PHYSICIAN: Dr. Coyne. PROBLEM: Melena. HISTORY OF PRESENT ILLNESS: This 83-year-old white man is known to me from the past. Last year in April, he was admitted for what appeared to be ileal diverticulitis. This resolved with antibiotic therapy and bowel rest. The patient has underlying atrial fibrillation and has been anticoagulated with Eliquis. Recently, he had some aches and pains related to yard work as he was a very vigorous person and began taking Motrin. More recently, he had upper respiratory symptoms related to his underlying COPD and was treated with prednisone 20 mg daily for about five days, he says. This morning, he was noted to have dark black stool and some lightheadedness. Nevertheless, he was able to take his great [place]; there was not too much fishing only, throwing rocks, etc., he said. In any case, he did present to the emergency room, was evaluated by Dr. Espinosa and found to have a hematocrit of 28.2. Subsequent evaluation an hour later was 27.1. He is due for a lab study at 2300 hours. He was not reversed with Kcentra as he has been hemodynamically stable and having no further presumed bleeding. His coag studies show an INR of 1.05 and PTT is 25.0. His platelet count is 254,000. He takes no anti-platelet agents based on my review of his outpatient medications. MEDICATIONS: His most recent medications have included an albuterol inhaler, Eliquis 5 mg p.o. b.i.d. (last dose taken this morning), recently Motrin 600 mg q.6 as needed for pain, Synthroid 50 mg p.o. daily, losartan 100 mg p.o. daily, metformin 500 mg daily, montelukast 10 mg daily, potassium chloride 10 mg daily and most recently prednisone 20 mg daily. ALLERGIES: He has no known drug allergies. SOCIAL HISTORY: He is accompanied by his and daughter. He is not smoking or drinking alcohol. Electronically Signed By: MAI KNOX MD 03/25/24 0754 PATIENT NAME: EKTA TEMPLE CONSULTATION DATE OF : 42 REPORT #: [id number] PHYSICIAN: MAI KNOX MD PCP: STEPHON HALLMAN [facility] REPORT IS CONFIDENTIAL AND NOT TO BE RELEASED WITHOUT AUTHORIZATION [address] [address] Signed REVIEW OF SYSTEMS: He denies any shortness of breath or chest pain. He has had no dysphagia, has no abdominal pain particularly. He is somewhat hungry. He says he "could eat a hamburger." He is n.p.o. Notably, he has no IV running that will be remedied. PHYSICAL EXAMINATION: GENERAL: A pleasant white man, who looks to be in no acute distress at this time. He is on the regular nursing stanley and not in the intensive care unit. VITAL SIGNS: On presentation, temperature is 98.1 with a blood pressure 120/62 and a pulse of 93. Current vital signs show temperature 98.2, pulse 71, blood pressure 112/90, O2 saturation is 95% on room air. CHEST: Clear. HEART: Irregularly irregular without murmur. ABDOMEN: Somewhat protuberant, but not particularly distended and no evidence of ascites is noted. EXTREMITIES: Show no clubbing, cyanosis, edema, or petechiae. LABORATORY STUDIES: As previously noted. Current hematocrit 27.1 presentation, hematocrit 28.2, platelets 254,000. Electrolytes are normal, creatinine 1.28. Liver enzymes show alkaline phosphatase 44. ASSESSMENT AND PLAN: The patient very likely does have an upper gastrointestinal bleeding site, possibly duodenal ulcer versus gastric ulcer. No doubt related to chronic anticoagulation with Eliquis and Motrin taken additionally with a more recent dose of prednisone and reasonably a high dose of 20 mg. He is unlikely to have steroid insufficiency as he was only on the medication for 5 days or so. He has been made n.p.o. and on that basis we will need maintenance IV fluids, which I have written D5 LR at 85 mL an hour. I had discussed with Dr. Espinosa, emergency room physician regarding Kcentra as reversal agent. He and Dr. Coyne had planned to avoid reversal since he is hemodynamically stable. It appears to not have ongoing blood loss and hematocrit is stable at least over several hours so far. Kcentra certainly can be infused if there is clinical evidence of bleeding including vital sign as changes or additional melena. Upper endoscopy will certainly be indicated and might be able to be performed tomorrow, though he will certainly still be of physiologically anticoagulated with Eliquis. I will initiate Carafate tonight in addition to the PPI medication he is taking intravenously at this time. The Carafate should not have no adverse effect on endoscopy particularly and may be beneficial in initiating healing for what was presumed to be a Electronically Signed By: MAI KNOX MD 03/25/24 0754 PATIENT NAME: EKTA TEMPLE CONSULTATION DATE OF : 42 REPORT #: [id number] PHYSICIAN: MAI KNOX MD PCP: STEPHON HALLMAN PAC REPORT IS CONFIDENTIAL AND NOT TO BE RELEASED WITHOUT AUTHORIZATION [facility] [address], [place] [address] Signed peptic ulcer with bleeding. Mindful of his admission last summer with ileal diverticulitis, that as a source of bleeding must be considered as well. If upper endoscopy is entirely negative then that most likely would be an additional source. He has undergone colonoscopy in the past. I noted to have been performed by Dr. Luis Chu on January 01, 2018 at which time he had sigmoid diverticulosis and previous findings of polyps and recent (2018 finding of 3 mm polyps x7 in the mid rectum). Obviously dark black blood would be a primary source proximal to the splenic flexure in most cases, and therefore, it will remain uncertain exactly what the bleeding source is until endoscopic evaluation has been completed. The risk of bleeding, infection, perforation, and of course, need for other indicated procedures was reviewed with him and his family. They understand and wished to proceed. MD NICK Mcdonald/ANNA /[id number] cc: Stephon Hallman PA-C MD Dr. Jesús DENT Copies: ~ Electronically Signed By: MAI KNOX MD 03/25/24 0754 PATIENT NAME: EKTA TEMPLE CONSULTATION DATE OF : 42 REPORT #: [id number] PHYSICIAN: MAI KNOX MD PCP: STEPHON HALLMAN PAC REPORT IS CONFIDENTIAL AND NOT TO BE RELEASED WITHOUT AUTHORIZATION
[2024-03-25] MEDS ORDERED: IBLOOD GLUCOSE TEST STRIP 1 EA TEST VI SCH ×2 (08:00→16:00)
[2024-03-25] MEDS ORDERED: METOPROLOL SUCCINATE 25 MG TABCR PO SCH (09:00)
[2024-03-25] MEDS ORDERED: PANTOPRAZOLE SODIUM 40 MG/10 ML VIAL IV SCH (09:00)
--- NOTE | 2024-03-25 10:54 | NUR ---
Patient left medical floor with surgery nurse for scheduled upper scope.
[2024-03-25] MEDS ORDERED: LIDOCAINE HCL 2% 5 ML SDV ONE (11:56)
[2024-03-25] MEDS ORDERED: propofoL 200 MG/20 ML VIAL ONE (11:56)
[2024-03-25] MEDS ORDERED: PHARMACY RENAL DOSE ADJUSTMENT 1 DOSE MISC PO SCH (12:00)
--- NOTE | 2024-03-25 12:35 | NUR ---
03/25/24 1235 Maria Guadalupe Bundy 1228- PT ARRIVES TO PACU REACTIVE TO STIMULI, RESP EVEN AND UNLABORED. OXYGEN SAT HIGH 90'S ON 2L VIA CO2 NC. 1234- OXYGEN TITRATED OFF.
--- NOTE | 2024-03-25 13:00 | NUR ---
Spoke with . They cont. to live at their home in [place]. Pt uses 02 and CPAP from [facility]. Pt is very active and drives. denies needs. Pt plans on dc to home when cleared by . states they are raising their Great Grandchildren who are 3 & 6. Daughter drives from [employer] and assists them as needed. Pt has Chronic COPD.
--- NOTE | 2024-03-25 13:07 | NUR ---
Patient back to the medical floor. Patient is awake, alert to self and place. Patient denies pain at this time. Airway patent, [id number] 98% on room air. Patient's vital signs are stable, afebrile.
--- NOTE | 2024-03-25 13:15 | NUR ---
JIN from Dr. Coyne to change iV fluids to LR @ 85ml/hr.
[2024-03-25] MEDS ORDERED: LACTATED RINGER'S 1,000 ML IV SCH (13:30)
--- NOTE | 2024-03-25 13:37 | NUR ---
UNABLE TO VISIT DURING SPIRITUAL CARE ROUNDS; PT AND FAMILY IN PHONE CONVERSATION. DID NOT INTERRUPT. PROVIDED PRAYER.
[2024-03-25] MEDS ORDERED: ADVAIR 250-501 EACH INH (14:41)
[2024-03-25] MEDS ORDERED: HYDROCHLOROTH12.5 MG PO (14:42)
[2024-03-25] MEDS ORDERED: SPIRIVA RESPIMAT4 GM INH (14:45)
--- NOTE | 2024-03-25 14:50 | NUR ---
MED REC COMPLETE
--- NOTE | 2024-03-25 15:05 | NUR ---
PATIENT UP TO BATHROOM TO VOID WITH SBA, NO DIZZINESS NOTED WITH AMBULATION. PATIENT IS TAKING IN PO FLUIDS WELL AND IS SALINE LOCKED AT THIS TIME.
--- NOTE | 2024-03-25 15:11 | NUR ---
PATIENT AMBULATING IN HALLWAY WITH SBA, NO DIZZINESS NOTED. VITALS COMPLETE.
--- NOTE | 2024-03-25 19:23 | NUR ---
REPORT RECEIVED FROM DAY SHIFT RN. PT LYING IN BED ALERT AND ORIENTED. DENIES NEEDS. WHITE BOARD UPDATED. CALL LIGHT IN REACH.
--- NOTE | 2024-03-25 20:41 | NUR ---
EVENING ASSESSMENT COMPLETE. SCHEDULED MEDS ADMIN PER EMAR. EDUCATION PROVIDED REGARDING CARAFATE SLURRY. PT ABLE TO DEMONSTRATE BACK. PT DENIES PAIN OR NAUSEA. BOWEL TONES ACTIVE. PT REPORTS FLATUS. NO FURTHER NEEDS AT THIS TIME. CALL LIGHT IN REACH.
[2024-03-25] MEDS ORDERED: PANTOPRAZOLE SODIUM 40 MG TABEC PO SCH (21:00)
[2024-03-25 21:08] LABS: BASOPHILS 0.4 % (0-2); EOSINOPHILS 2.6 % (0-6); HEMATOCRIT 26.6 % (35.0-50.0); HEMOGLOBIN 8.9 g/dL (12.0-18.0); LYMPHOCYTES 24.4 % (24-44); MCH 30.9 (27-36); MCHC 33.6 g/dl (30-36); MCV 92.1 fl (81-99); MONOCYTES 5.6 % (0-12); PLATELET COUNT 232 K/uL (140-440); RBC 2.89 M/ul (4.3-5.7); RDW 13.3 (10.5-15.0)
--- NOTE | 2024-03-26 00:34 | NUR ---
PT RESTING IN BED WITH EYES CLOSED. RESPIRATIONS EVEN. CALL LIGHT IN REACH.
[2024-03-26 02:09] VITALS: BP 116/55
--- NOTE | 2024-03-26 02:10 | NUR ---
PT RESTING WITH EYES CLOSED. AWAKENS EASILY. VS OBTAINED, WNL. PT DENIES PAIN OR NAUSEA. DENIES FEELING LIGHTHEADED OR DIZZY. NO NEEDS AT THIS TIME. CALL LIGHT IN REACH.
[2024-03-26 05:48] LABS: BASOPHILS 0.5 % (0-2); EOSINOPHILS 2.9 % (0-6); HEMATOCRIT 26.1 % (35.0-50.0); HEMOGLOBIN 8.8 g/dL (12.0-18.0); LYMPHOCYTES 23.4 % (24-44); MCH 31.2 (27-36); MCHC 33.8 g/dl (30-36); MCV 92.2 fl (81-99); MONOCYTES 6.1 % (0-12); NEUTROPHILS 67.1 % (39-80); PLATELET COUNT 220 K/uL (140-440); RBC 2.83 M/ul (4.3-5.7); RDW 13.2 (10.5-15.0)
[2024-03-26 05:50] VITALS: BP 121/53
--- NOTE | 2024-03-26 05:57 | NUR ---
VS AND I&O OBTAINED. PT DENIES PAIN OR NAUSEA. SCHEDULED MEDS ADMIN PER EMAR. PT INDEPENDENT WITH CARAFATE SLURRY. DENIES NEEDS. CALL LIGHT IN REACH.
[2024-03-26 05:58] LABS: ANION GAP 9.8 (7-21); BUN/CREATININE RATIO 14.89 (6.0-28.6); CALCIUM 8.1 mg/dL (8.5-10.1); CREATININE, SERUM 0.94 mg/dL (0.70-1.30); POTASSIUM 3.8 mmol/L (3.5-5.1)
--- NOTE | 2024-03-26 07:22 | NUR ---
RECEIVED REPORT FROM CRISTINE MONROE. PT AWAKE IN BED, STATES NO NEEDS AT THIS TIME, CALL LIGHT WITHIN REACH.
--- NOTE | 2024-03-26 07:40 | NUR ---
UR CONCURRENT REVIEW: [facility] OBS 03/24/24 @ 7055 NO AUTH REQUIRED FOR OBS STAY. SERIAL H&H, INCREASE DIET AND START PPI. ANTICIPATE DC TODAY. MD ADVISED OF NEED FOR DC TODAY IF NO FURTHER NEED IS NOTED.
[2024-03-26] MEDS ORDERED: IBLOOD GLUCOSE TEST STRIP 1 EA TEST VI SCH (08:00)
[2024-03-26] MEDS ORDERED: INSULIN LISPRO 100 UNIT/ML ML SUB-Q SCH (08:00)
[2024-03-26 08:12] VITALS: BP 154/82
[2024-03-26 08:13] VITALS: BP 154/82
--- NOTE | 2024-03-26 08:14 | NUR ---
PT UP TO CHAIR EATING BREAKFAST, DENIES PAIN OR NAUSEA AT THIS TIME. PT TAKES PO MEDICATIONS W/O DIFFICULTY. SCDs NOT IN PLACE D/T PT MOVING AROUND ROOM. ABDOMEN NOT DISTENDED PER PT. ACTIVE BOWEL TONES. PT STATES NO NEEDS AT THIS TIME. CALL LIGHT WITHIN REACH.
--- NOTE | 2024-03-26 08:31 | NUR ---
SNAGGER ENTERED ROOM TO CHECK PT BG. PT WAS LAYING IN BED AND INDEPENDENDTLY WALKED TO THE RECLINER FOR BREAKFAST. SNAGGER ADJUSTED PT BED LINENS. NO FURTHER COMPLAINTS CALL LIGHT WITHIN REACH
[2024-03-26] MEDS ORDERED: LEVOTHYROXINE SODIUM 50 MCG TAB PO SCH (09:00)
[2024-03-26] MEDS ORDERED: PANTOPRAZOLE SODIUM 40 MG TABEC PO SCH (09:00)
--- NOTE | 2024-03-26 09:40 | NUR ---
PT UP TO CHAIR AWAKE VISITING WITH AT THE BEDSIDE. PT AND STATE NO NEEDS AT THIS TIME, CALL LIGHT WITHIN REACH.
--- NOTE | 2024-03-26 10:24 | NUR ---
MED REC COMPLETE
--- NOTE | 2024-03-26 11:00 | NUR ---
Spoke with Sangeetha. Plan is for pt to dc to home today. They deny any needs and will go home when discharged.
--- NOTE | 2024-03-26 11:17 | NUR ---
PT AND HAVE QUESTIONS ABOUT FOLLOW UP CARE, EDUCATION GIVEN. PT AND STATE ALL QUESTIONS HAVE BEEN ANSWERED. PT ABLE TO MIX CARAFATE SLURRY INDEPENDENTLY. PT STATES NO QUESTIONS OR NEEDS AT THIS TIME. CALL LIGHT WITHIN REACH.
--- NOTE | 2024-03-26 11:45 | NUR ---
VISITED DURING SPIRITUAL CARE ROUNDS. PT AND ANTICIPATING DISCHARGE. I PROVIDED SUPPORTIVE PRESENCE, HOSPITALITY, PRAYER. PT AND EXPRESSED GRATITUDE.
[2024-03-26] MEDS ORDERED: SUCRALFATE1 GM PO (12:15)
[2024-03-26] MEDS ORDERED: PANTOPRAZOLE SO40 MG PO (12:16)
--- NOTE | 2024-03-26 12:22 | OR ---
[facility] [address], [place] [address] Signed DATE OF OPERATION: 03/24/2024 SURGEON: Mai Knox MD PREOPERATIVE DIAGNOSES: Recent melena, now stable. No additional melena. Hematocrit 28 at presentation, now 26. POSTOPERATIVE DIAGNOSIS: Mid to distal esophageal ulcerative lesion likely accounting for melena. PROCEDURE: Esophagogastroduodenoscopy with application of hemoclip for hemostatic control. ANESTHESIA: Intravenous sedation, propofol infusion, sathya Jacobo, CRAFT SUPERINTENDENT. INDICATION: This 83-year-old white man is a patient of Dr. Srinath Coyne, who admitted him yesterday with at least two episodes of significant melena and a hematocrit of 28. The patient is chronically anticoagulated with Eliquis related to atrial fibrillation. The patient is known to me from last summer at which time he was admitted and treated for terminal ileum diverticulitis. Given his hemodynamic stability, his Eliquis was not reversed with Kcentra and observation overnight had shown no additional episodes of bleeding, lightheadedness, hypertension, or other problem. His hematocrit today is 26, previously 28. Though, he has not been off Eliquis for more than 24 hours thus far, I have recommended upper endoscopy be performed, particularly if no abnormality is found, then evaluation of the ileum with its previous diverticular issue would be in order. The risk of this procedure includes but are not limited to bleeding, infection, and perforation. He understands and wished to proceed. FINDINGS: In the esophagus at approximately 34 cm there was an ulcerated lesion that did have some fresh blood, but not actual profound bleeding. Did not appear to be associated with varices. This was hemoclipped for control. The stomach and duodenum showed no sign of abnormality that would account for any recent melena. The vocal cords were normal. DESCRIPTION OF PROCEDURE: The patient was brought to the endoscopy suite and placed in lateral decubitus position. He underwent lidocaine hypopharyngeal topical anesthesia and a bite block was placed. Electronically Signed By: MAI KNOX MD 03/26/24 1222 PATIENT NAME: EKTA TEMPLE OPERATIVE REPORT DATE OF : 42 REPORT #: [id number] PHYSICIAN: MAI KNOX MD PCP: STEPHON HALLMAN PAC REPORT IS CONFIDENTIAL AND NOT TO BE RELEASED WITHOUT AUTHORIZATION [facility] [address], [place] [address] Signed He was given intravenous sedation by the senior design engineering specialist with all due care. An Olympus video upper endoscope was passed in the hypopharynx. The vocal cords were normal. The scope was advanced to the esophagus. In the midportion, there was an ulcerated area that was not bleeding. He did not particularly have varices that could be told. Scope was advanced beyond this to the GE junction, which showed a minimal amount of inflammation onto the stomach, which showed no sign of blood clot or blood and no lesion to account for bleeding. The pylorus was reasonably normal. The scope was passed through into the duodenum. The duodenum was entirely normal including the 3rd, 2nd, and bulbar portions. Withdrawal of scope allowed for retroflexed view which showed any faced flap valve, but no sign of typical Luisa-Love tear in the area. During the course of upper endoscopy, he did have a very forceful eructation which may or may not have contributed to his finding previously. The scope was then withdrawn identifying an ulcerated area that quite likely was the source of bleeding. This was secured with a single hemoclip with good effect. Scope was carefully withdrawn. The remaining esophagus and vocal cords were normal. The patient was taken to the recovery room in good condition. CONCLUDING DIAGNOSIS: Likely source of his melena was bleeding from the ulcerated area at 34 cm. It had the appearance of a Luisa-Love tear, but was not at the GE junction proper. PLAN: We will continue his Carafate though in a slurry form. Continue PPI medication and avoid restarting Eliquis for at least a week or so. Repeat upper endoscopy in six weeks would be appropriate to assess for complete healing. MD NICK Mcdonald/SHARIFL /[id number] cc: DO Stephon Silverio PA-C Electronically Signed By: MAI KNOX MD 03/26/24 1222 PATIENT NAME: EKTA TEMPLE OPERATIVE REPORT DATE OF : 42 REPORT #: [id number] PHYSICIAN: MAI KNOX MD PCP: STEPHON HALLMAN PAC REPORT IS CONFIDENTIAL AND NOT TO BE RELEASED WITHOUT AUTHORIZATION [address] [address] Signed Srinath Coyne MD Copies: ~ Electronically Signed By: MAI KNOX MD 03/26/24 1222 PATIENT NAME: EKTA TEMPLE OPERATIVE REPORT DATE OF : 42 REPORT #: [id number] PHYSICIAN: MAI KNOX MD PCP: STEPHON HALLMAN PAC REPORT IS CONFIDENTIAL AND NOT TO BE RELEASED WITHOUT AUTHORIZATION
[2024-03-26 12:34] VITALS: BP 155/66
--- NOTE | 2024-03-26 12:55 | NUR ---
PT DRESSED IN OWN CLOTHES, IVs DC'D WNL. VSS. DC PACKET AND EDUCATION GIVEN, PT AND STATE ALL QUESTIONS HAVE BEEN ANSWERED. PT AMBULATES TO FRONT OF BUILDING.
== END 2024-03-26 12:55 | disposition home or self-care (01) ==
LOC: ED 15:52 → MS 17:57
PROVIDERS: Emergency Medicine; ADMIT Family Medicine; ATTEND Family Medicine
PROC: 0W3P8ZZ Control Bleeding in Gastrointestinal Tract, Via Natural or Artificial Opening Endoscopic (ICD-10-PCS; principal; 2024-03-24)
DX: K22.10 Ulcer of esophagus without bleeding (principal); I48.91 Unspecified atrial fibrillation; E11.9 Type 2 diabetes mellitus without complications; E03.9 Hypothyroidism, unspecified; I10 Essential (primary) hypertension; D64.9 Anemia, unspecified; J44.9 Chronic obstructive pulmonary disease, unspecified; Z79.84 Long term (current) use of oral hypoglycemic drugs; Z79.899 Other long term (current) drug therapy; Z79.01 Long term (current) use of anticoagulants; Z87.891 Personal history of nicotine dependence
CPT/HCPCS: 00731; 36415; 80048; 80053; 83735; 84100; 85025; 85610; 85730; 86850; 86900; 86901; 86922; A9270; C9113; J2001; J2704; J7121